=== PATIENT | male | born 1960 | race Caucasian/White ===

== ENCOUNTER 2020-09-30 06:19 | Day surgery (SDC) | payer BC, SELFPAY ==
[~2020-09-30] VITALS: Ht 175.3 cm; Wt 62.6 kg
[2020-09-30] MEDS ORDERED: METOCLOPRAMIDE HCL 10 MG/2 ML VIAL ONE (10:40)
[2020-09-30] MEDS ORDERED: ONDANSETRON HCL 4 MG/2 ML VIAL ONE ×2 (10:40→13:05)
[2020-09-30] MEDS ORDERED: LR 1,000 ML IV.SOLN IV ONE (10:40)
[2020-09-30] MEDS ORDERED: MIDAZOLAM HCL 5 MG/ML VIAL (VERSED) IV ONE (10:40)
[2020-09-30] MEDS ORDERED: WATER FOR IRRIGATION,STERILE 1,000 ML IRRIG.SOLN IR ONE (10:40)
[2020-09-30] MEDS ORDERED: KETAMINE HCL 500 MG/10 ML VIAL ONE (10:40)
[2020-09-30] MEDS ORDERED: NS IRRIG SOLN 1000 ML IR ONE (10:40)
[2020-09-30] MEDS ORDERED: GLYCOPYRROLATE 0.2 MG/ML VIAL ONE (10:40)
[2020-09-30] MEDS ORDERED: PROPOFOL 200MG/ 20ML VIAL (DIPRIVAN) IV ONE (10:40)
[2020-09-30] MEDS ORDERED: ONDANSETRON HCL 4 MG/2 ML VIAL IVP PRN (10:45)
[2020-09-30] MEDS ORDERED: KETOROLAC TROMETHAMINE 30 MG VIAL IVP PRN ×3 (10:45)
[2020-09-30] MEDS ORDERED: METOCLOPRAMIDE HCL 10 MG/2 ML VIAL IVP PRN (10:45)
[2020-09-30] MEDS ORDERED: HYDROmorphone 1 MG INJ. 1 MG/ML AMPUL IVP PRN (10:45)
[2020-09-30] MEDS ORDERED: LR 1,000 ML IV SCH (10:45)
[2020-09-30 11:15] VITALS: BP_SYST 135
[2020-09-30] MEDS ORDERED: ONDANSETRON HCL 4 MG/2 ML VIAL IVP ONE (13:15)
== END 2020-09-30 13:56 | disposition home or self-care (01) ==
LOC: SMU 06:19 → SDS 06:19
PROVIDERS: ATTEND Internal Medicine
DX: Z12.11 Encounter for screening for malignant neoplasm of colon (principal); K20.90 Esophagitis, unspecified without bleeding; K29.50 Unspecified chronic gastritis without bleeding; R13.10 Dysphagia, unspecified; K76.9 Liver disease, unspecified; I10 Essential (primary) hypertension; E78.5 Hyperlipidemia, unspecified; Z86.010 Personal history of colon polyps; Z20.828 Contact with and (suspected) exposure to other viral communicable diseases; Z79.899 Other long term (current) drug therapy
CPT/HCPCS: 36415; 43239; 43249; 45378; 87081; 88305; 88312; 88313; C1769; J2250; J2405; J2704; J2765; J3490; J7120; U0003